=== PATIENT | male | born 1970 ===

== ENCOUNTER 2021-08-15 00:32 | Inpatient (IN) ==
[2021-08-15 00:56] LABS: Basophils % 0.3 % (0.0-0.8); Eosinophils # 0.1 10*3/uL (0.0-0.87); Eosinophils % 0.9 % (0.00-10.9); Hematocrit 35.5 VOL% (42.0-52.0); Hemoglobin 11.9 GM/DL (14.0-18.0); Immature Granulocytes % 0.2 %; Immature Granulocytes Absolute 0.01 #; Lymphocytes # 2.9 10*3/uL (1.4-4.0); Lymphocytes % 49.6 % (21.2-54.2); Mean Corpuscular HGB Conc 33.5 GM/DL (32-36); Mean Corpuscular Volume 88.1 FL (87-102); Mean Platelet Volume 10.1 FL (9.6-12.0); Platelet Count 245 T/CUMM (130-400); Red Blood Count 4.03 MC/CUMM (3.8-5.5); Red Cell Distribution Width 12.8 % (9.3-17.3); White Blood Count 5.8 T/CUMM (4-12)
[2021-08-15] MEDS ORDERED: cefTRIAXone 1,000 MG in SODIUM CHLORIDE 0.9% 100 ML IV STA (01:07)
[2021-08-15] MEDS ORDERED: ONDANSETRON 4 MG/2 ML VIAL IV STA (01:07)
[2021-08-15] MEDS ORDERED: methylPREDNISolone SOD SUC 125 MG/2 ML VIAL IV STA (01:07)
[2021-08-15 01:16] LABS: Albumin 3.8 G/DL (3.4-5.0); Bilirubin,Total 0.4 MG/DL (0.20-1.00); Calcium 8.7 MG/DL (8.5-10.1); Osmolality,Calculated 281.1 MOS/KG (273-304); Potassium 3.2 MMOL/L (3.5-5.1); Total Protein 7.1 G/DL (6.4-8.2)
[2021-08-15 01:27] LABS: PT Patient Result 10.7 SECS (10.5-12.0)
[2021-08-15] MEDS ORDERED: ALBUTEROL NEB SOLN 5 MG/ML 20 ML/BOTTLE CONT NEB SCH (01:30)
[2021-08-15 01:47] LABS: ABG Base Excess 3.1 MMOL/L (-2.5-2.5); ABG HCO3 27.1 MMOL/L (20-26); ABG PCO2 40.9 MM HG (35-48); ABG PH 7.436 (7.35-7.45); ABG PO2 69.6 MM HG (80-95); ABG TCO2 24.5 MMOL/L (23-27)
[2021-08-15] MEDS ORDERED: ALBUTEROL/IPRATROPIUM 3 ML NEB RESP TX STA (03:18)
[2021-08-15] MEDS ORDERED: POTASSIUM CHLORIDE 20 MEQ TABLET PO STA (03:18)
[2021-08-15] MEDS ORDERED: ONDANSETRON 4 MG/2 ML VIAL IV PRN (04:12)
[2021-08-15] MEDS ORDERED: GLUCAGON 1 MG VIAL IM PRN (04:12)
[2021-08-15] MEDS ORDERED: DEXTROSE 50% 25 GM/50 ML VIAL IV PRN (04:12)
[2021-08-15] MEDS ORDERED: guaiFENesin/DM ER 600-30 MG TABLET PO PRN (04:12)
[2021-08-15] MEDS ORDERED: hydrALAZINE 20 MG/1 ML VIAL IV PRN (04:12)
[2021-08-15] MEDS: LEVOFLOXACIN INJ 500 MG/100 ML PREMIX IV SCH (06:12)
[2021-08-15] MEDS: ALBUTEROL/IPRATROPIUM 3 ML NEB RESP TX SCH ×3 (07:00→19:08)
[2021-08-15] MEDS ORDERED: methylPREDNISolone SOD SUC 40 MG/1 ML VIAL IV SCH (09:00)
[2021-08-15] MEDS ORDERED: INFLUENZA VIRUS VACCINE 0.5 ML SYRINGE IM ONE (13:04)
[2021-08-15] MEDS: MONTELUKAST 10 MG TABLET PO SCH (14:13)
[2021-08-15] MEDS: PANTOPRAZOLE 40 MG TABLET PO SCH (14:14)
[2021-08-15] MEDS: BENZONATATE 100 MG CAPSULE PO SCH ×2 (14:14→20:25)
[2021-08-15 14:53] LABS: Barbiturates Screen,Urine Negative (Negative); Benzodiazepines Screen,Urine Negative (Negative); Cannabinoid Screen,Urine Negative (Negative); Opiate Screen,Urine Positive (Negative); Phencyclidine Screen,Urine Negative (Negative)
[2021-08-15] MEDS: methylPREDNISolone SOD SUC 125 MG/2 ML VIAL IV SCH (16:55)
[2021-08-15] MEDS: ACETAMINOPHEN 325 MG TABLET PO PRN (20:25)
[2021-08-16] MEDS: methylPREDNISolone SOD SUC 125 MG/2 ML VIAL IV SCH ×3 (00:51→17:26)
[2021-08-16] MEDS: ALBUTEROL/IPRATROPIUM 3 ML NEB RESP TX SCH ×4 (01:06→19:35)
[2021-08-16 06:06] LABS: Basophils % 0.1 % (0.0-0.8); Hematocrit 38.1 VOL% (42.0-52.0); Hemoglobin 12.4 GM/DL (14.0-18.0); Immature Granulocytes % 0.5 %; Immature Granulocytes Absolute 0.05 #; Lymphocytes # 0.9 10*3/uL (1.4-4.0); Lymphocytes % 8.5 % (21.2-54.2); Mean Corpuscular HGB Conc 32.5 GM/DL (32-36); Mean Corpuscular Volume 89.9 FL (87-102); Mean Platelet Volume 10.4 FL (9.6-12.0); Neutrophils % 87.9 % (38.7-73.9); Platelet Count 247 T/CUMM (130-400); Red Blood Count 4.24 MC/CUMM (3.8-5.5); Red Cell Distribution Width 13.3 % (9.3-17.3); White Blood Count 10.4 T/CUMM (4-12)
[2021-08-16] MEDS: LEVOFLOXACIN INJ 500 MG/100 ML PREMIX IV SCH (06:14)
[2021-08-16 06:17] LABS: PT Patient Result 10.7 SECS (10.5-12.0); Partial Thromboplastin Time 25.9 SECS (23.8-32.1)
[2021-08-16 06:25] LABS: Calcium 9.6 MG/DL (8.5-10.1); Osmolality,Calculated 281.5 MOS/KG (273-304); Potassium 3.7 MMOL/L (3.5-5.1)
[2021-08-16] MEDS ORDERED: MIDAZOLAM 2 MG/2 ML VIAL ONE (07:22)
[2021-08-16] MEDS ORDERED: flumazeniL 0.5 MG/5 ML VIAL IV ONE (07:23)
[2021-08-16] MEDS ORDERED: MEPERIDINE 50 MG/1 ML VIAL IM ONE (07:30)
[2021-08-16] MEDS ORDERED: BENZONATATE 100 MG CAPSULE PO ONE (07:30)
[2021-08-16] MEDS ORDERED: diphenhydrAMINE 50 MG/1 ML VIAL IM ONE (07:30)
[2021-08-16] MEDS ORDERED: LIDOCAINE 2% VISCOUS 100 ML BOTTLE SWISH/SPIT ONE (08:00)
[2021-08-16] MEDS ORDERED: LIDOCAINE 2% 20 ML VIAL RESP TX ONE (08:00)
[2021-08-16] MEDS ORDERED: LIDOCAINE 1% 20 ML VIAL MISC INJ ONE (08:00)
[2021-08-16] MEDS ORDERED: MIDAZOLAM 2 MG/2 ML VIAL IV ONE (09:01)
[2021-08-16] MEDS: MONTELUKAST 10 MG TABLET PO SCH (11:02)
[2021-08-16] MEDS: PANTOPRAZOLE 40 MG TABLET PO SCH (11:02)
[2021-08-16] MEDS: BENZONATATE 100 MG CAPSULE PO SCH ×3 (11:11→21:48)
[2021-08-17] MEDS: ALBUTEROL/IPRATROPIUM 3 ML NEB RESP TX SCH ×3 (00:35→14:59)
[2021-08-17] MEDS: methylPREDNISolone SOD SUC 125 MG/2 ML VIAL IV SCH ×3 (01:46→16:04)
[2021-08-17 06:09] LABS: Basophils % 0.1 % (0.0-0.8); Hematocrit 36.9 VOL% (42.0-52.0); Hemoglobin 11.9 GM/DL (14.0-18.0); Immature Granulocytes % 0.4 %; Immature Granulocytes Absolute 0.05 #; Lymphocytes # 0.7 10*3/uL (1.4-4.0); Lymphocytes % 6.5 % (21.2-54.2); Mean Corpuscular HGB Conc 32.2 GM/DL (32-36); Mean Corpuscular Volume 90.7 FL (87-102); Mean Platelet Volume 10.7 FL (9.6-12.0); Platelet Count 215 T/CUMM (130-400); Red Blood Count 4.07 MC/CUMM (3.8-5.5); Red Cell Distribution Width 13.4 % (9.3-17.3); White Blood Count 11.1 T/CUMM (4-12)
[2021-08-17 06:44] LABS: Calcium 9.3 MG/DL (8.5-10.1); Osmolality,Calculated 279.8 MOS/KG (273-304)
[2021-08-17] MEDS: PANTOPRAZOLE 40 MG TABLET PO SCH (09:41)
[2021-08-17] MEDS: MONTELUKAST 10 MG TABLET PO SCH (09:42)
[2021-08-17] MEDS: BENZONATATE 100 MG CAPSULE PO SCH ×3 (09:42→22:24)
[2021-08-17] MEDS: LEVOFLOXACIN INJ 500 MG/100 ML PREMIX IV SCH (10:51)
[2021-08-17] MEDS: DILTIAZEM 30 MG TABLET PO SCH ×2 (16:03→22:23)
[2021-08-18] MEDS: ALBUTEROL/IPRATROPIUM 3 ML NEB RESP TX SCH ×4 (00:40→22:35)
[2021-08-18] MEDS: ACETYLCYSTEINE 20% 800 MG/4 ML VIAL RESP TX SCH ×4 (00:40→22:53)
[2021-08-18] MEDS: methylPREDNISolone SOD SUC 125 MG/2 ML VIAL IV SCH ×3 (03:19→16:26)
[2021-08-18 06:40] LABS: Basophils % 0.2 % (0.0-0.8); Hematocrit 36.1 VOL% (42.0-52.0); Immature Granulocytes % 0.6 %; Immature Granulocytes Absolute 0.07 #; Lymphocytes # 0.9 10*3/uL (1.4-4.0); Lymphocytes % 7.9 % (21.2-54.2); Mean Corpuscular HGB Conc 33.2 GM/DL (32-36); Mean Corpuscular Volume 90.7 FL (87-102); Mean Platelet Volume 10.9 FL (9.6-12.0); Monocytes % 4.5 % (1.7-12.7); Neutrophils % 86.8 % (38.7-73.9); Platelet Count 211 T/CUMM (130-400); Red Blood Count 3.98 MC/CUMM (3.8-5.5); Red Cell Distribution Width 13.3 % (9.3-17.3); White Blood Count 11.2 T/CUMM (4-12)
[2021-08-18 06:55] LABS: Calcium 8.8 MG/DL (8.5-10.1); Osmolality,Calculated 280.4 MOS/KG (273-304); Potassium 3.8 MMOL/L (3.5-5.1)
[2021-08-18] MEDS: LEVOFLOXACIN INJ 500 MG/100 ML PREMIX IV SCH (09:12)
[2021-08-18] MEDS: BENZONATATE 100 MG CAPSULE PO SCH ×3 (09:12→22:00)
[2021-08-18] MEDS: MONTELUKAST 10 MG TABLET PO SCH (09:12)
[2021-08-18] MEDS: PANTOPRAZOLE 40 MG TABLET PO SCH (09:12)
[2021-08-18] MEDS: DILTIAZEM 30 MG TABLET PO SCH ×3 (09:12→22:00)
[2021-08-18] MEDS: NYSTATIN 500,000 UNIT/5 ML UDCUP SWISH/SWAL SCH ×2 (16:27→21:59)
[2021-08-19] MEDS: methylPREDNISolone SOD SUC 125 MG/2 ML VIAL IV SCH (05:58)
[2021-08-19] MEDS ORDERED: methylPREDNISolone SOD SUC 125 MG/2 ML VIAL IV SCH ×2 (06:00→14:00)
[2021-08-19 06:01] LABS: Basophils % 0.1 % (0.0-0.8); Hematocrit 38.6 VOL% (42.0-52.0); Hemoglobin 12.5 GM/DL (14.0-18.0); Immature Granulocytes % 1.1 %; Immature Granulocytes Absolute 0.12 #; Lymphocytes # 1.3 10*3/uL (1.4-4.0); Lymphocytes % 11.6 % (21.2-54.2); Mean Corpuscular HGB Conc 32.4 GM/DL (32-36); Monocytes % 6.2 % (1.7-12.7); Platelet Count 217 T/CUMM (130-400); Red Blood Count 4.24 MC/CUMM (3.8-5.5); Red Cell Distribution Width 13.2 % (9.3-17.3)
[2021-08-19 06:26] LABS: Calcium 8.9 MG/DL (8.5-10.1); Osmolality,Calculated 283.4 MOS/KG (273-304); Potassium 3.8 MMOL/L (3.5-5.1)
[2021-08-19] MEDS: ALBUTEROL/IPRATROPIUM 3 ML NEB RESP TX SCH (07:30)
[2021-08-19 08:06] LABS: M. Tuberculosis PCR Result Negative (Negative)
[2021-08-19] MEDS: PANTOPRAZOLE 40 MG TABLET PO SCH (08:42)
[2021-08-19] MEDS: LEVOFLOXACIN INJ 500 MG/100 ML PREMIX IV SCH (08:42)
[2021-08-19] MEDS: BENZONATATE 100 MG CAPSULE PO SCH ×2 (08:42→15:27)
[2021-08-19] MEDS: DILTIAZEM 30 MG TABLET PO SCH ×2 (08:43→15:27)
[2021-08-19] MEDS: NYSTATIN 500,000 UNIT/5 ML UDCUP SWISH/SWAL SCH ×2 (08:43→15:28)
[2021-08-19] MEDS: MONTELUKAST 10 MG TABLET PO SCH (08:43)
[2021-08-19] MEDS: ACETAMINOPHEN 325 MG TABLET PO PRN (08:46)
[2021-08-19] MEDS: ACETYLCYSTEINE 20% 800 MG/4 ML VIAL RESP TX SCH (10:05)
[2021-08-19 11:29] LABS: Bilirubin,Urine Negative (Negative); Blood, Urine Negative (Negative); Glucose,Urine (UA) Negative (Negative); Ketones,Urine Negative (Negative); Nitrite,Urine Negative (Negative); Protein,Urine Negative; RBC,Urine <1 /HPF (0-4); Urine Appearance CLEAR (Clear); Urine Color Yellow (Yellow); Urine Specific Gravity 1.016 (1.001-1.035); Urine Urobilinogen < 2.0 EU/DL (0.2-1.0)
[2021-08-19 11:45] VITALS: BP 179/91
[2021-08-19] MEDS ORDERED: TAMSULOSIN 0.4 MG CAPSULE PO ONE (16:23)
== END 2021-08-19 16:57 | disposition home or self-care (01) | DRG 191 ==
LOC: N.ED 00:32 → SUATTDRO 04:12 → N.EDINP 04:12 → N.5E 12:52
PROVIDERS: ADMIT Internal Medicine; ATTEND Internal Medicine

== ENCOUNTER 2021-12-18 22:06 | Inpatient (IN) ==
[2021-12-18] MEDS ORDERED: ACETAMINOPHEN 500 MG TABLET PO STA (22:29)
[2021-12-18] MEDS ORDERED: methylPREDNISolone SOD SUC 125 MG/2 ML VIAL IV STA (22:36)
[2021-12-18] MEDS ORDERED: SODIUM CHLORIDE 0.9% 1,000 ML IV STA (22:37)
[2021-12-18] MEDS ORDERED: hydrALAZINE 20 MG/1 ML VIAL IV STA (22:48)
[2021-12-18 22:58] LABS: Basophils % 0.6 % (0.0-0.8); Eosinophils # 0.1 10*3/uL (0.0-0.87); Eosinophils % 2.6 % (0.00-10.9); Hematocrit 36.1 VOL% (42.0-52.0); Hemoglobin 11.7 GM/DL (14.0-18.0); Immature Granulocytes % 0.3 %; Immature Granulocytes Absolute 0.01 #; Lymphocytes % 30.4 % (21.2-54.2); Mean Corpuscular HGB Conc 32.4 GM/DL (32-36); Mean Corpuscular Volume 89.4 FL (87-102); Mean Platelet Volume 11.1 FL (9.6-12.0); Monocytes % 12.3 % (1.7-12.7); Neutrophils % 53.8 % (38.7-73.9); Platelet Count 159 T/CUMM (130-400); Red Blood Count 4.04 MC/CUMM (3.8-5.5); Red Cell Distribution Width 13.7 % (9.3-17.3); White Blood Count 3.4 T/CUMM (4-12)
[2021-12-18] MEDS: ALBUTEROL/IPRATROPIUM 3 ML NEB RESP TX STA ×2 (23:00→23:30)
[2021-12-18 23:21] LABS: Alanine Aminotransferase 30 U/L (16-61); Albumin 3.8 G/DL (3.4-5.0); Alkaline Phosphatase 107 U/L (45-117); Aspartate Amino Transferase 27 U/L (0-37); Bilirubin,Total < 0.39 MG/DL (0.20-1.00); Blood Urea Nitrogen 13 MG/DL (7-18); Calcium 8.3 MG/DL (8.5-10.1); Carbon Dioxide 25 MMOL/L (21-32); Estimated Glom Filtration Rate 94 ML/MIN; Glucose 90 MG/DL (74-106); Osmolality,Calculated 276.5 MOS/KG (273-304); Potassium 3.6 MMOL/L (3.5-5.1); Sodium 139 MMOL/L (136-145); Total Protein 7.2 G/DL (6.4-8.2)
[2021-12-18] MEDS ORDERED: ALBUTEROL/IPRATROPIUM 3 ML NEB RESP TX STA (23:29)
[2021-12-19] MEDS ORDERED: ACETAMINOPHEN 325 MG TABLET PO PRN (00:33)
[2021-12-19] MEDS ORDERED: DEXTROSE 10% 250 ML BAG IV PRN (00:34)
[2021-12-19] MEDS ORDERED: GLUCAGON 1 MG VIAL IM PRN (00:34)
[2021-12-19] MEDS: MONTELUKAST 10 MG TABLET PO SCH ×2 (01:09→20:39)
[2021-12-19] MEDS: TAMSULOSIN 0.4 MG CAPSULE PO SCH ×2 (01:09→20:39)
[2021-12-19] MEDS: AZITHROMYCIN INJ 500 MG in SODIUM CHLORIDE 0.9% 250 ML IV SCH (01:09)
[2021-12-19] MEDS ORDERED: LORazepam 2 MG/1 ML VIAL ONE (01:12)
[2021-12-19] MEDS: ALBUTEROL/IPRATROPIUM 3 ML NEB RESP TX SCH ×4 (01:30→19:42)
[2021-12-19 02:02] LABS: INR 0.9; PT Patient Result 10.3 SECS (10.5-12.0); Partial Thromboplastin Time 29.1 SECS (23.8-32.1)
[2021-12-19 02:14] LABS: Hematocrit 35.5 VOL% (42.0-52.0); Hemoglobin 11.8 GM/DL (14.0-18.0)
[2021-12-19] MEDS: FLUTICASONE/SALMETEROL 500-50 DISKUS 14 DOSE INH SCH ×3 (02:32→20:39)
[2021-12-19 02:35] LABS: Calcium 8.6 MG/DL (8.5-10.1); Osmolality,Calculated 277.5 MOS/KG (273-304); Potassium 3.6 MMOL/L (3.5-5.1)
[2021-12-19] MEDS: methylPREDNISolone SOD SUC 125 MG/2 ML VIAL IV SCH ×3 (05:11→17:22)
[2021-12-19] MEDS ORDERED: LORazepam 2 MG/1 ML VIAL IV ONE (06:20)
[2021-12-19] MEDS ORDERED: ENOXAPARIN 40 MG/0.4 ML SYRINGE SUBCUT SCH (09:00)
[2021-12-19] MEDS: lisinopriL 20 MG TABLET PO SCH (09:32)
[2021-12-19] MEDS: amLODIPine 10 MG TABLET PO SCH (09:32)
[2021-12-19] MEDS: PANTOPRAZOLE 40 MG TABLET PO SCH (09:32)
[2021-12-19] MEDS: INSULIN LISPRO 100 UNIT/ML SUBCUT SCH ×4 (09:42→20:39)
[2021-12-19 15:52] LABS: Barbiturates Screen,Urine Negative (Negative); Benzodiazepines Screen,Urine Negative (Negative); Cannabinoid Screen,Urine Negative (Negative); Opiate Screen,Urine Negative (Negative); Phencyclidine Screen,Urine Negative (Negative)
[2021-12-19] MEDS: hydrALAZINE 20 MG/1 ML VIAL IV PRN (17:22)
[2021-12-19] MEDS ORDERED: traZODone 50 MG TABLET PO ONE (22:54)
[2021-12-20] MEDS: AZITHROMYCIN INJ 500 MG in SODIUM CHLORIDE 0.9% 250 ML IV SCH (00:08)
[2021-12-20] MEDS: methylPREDNISolone SOD SUC 125 MG/2 ML VIAL IV SCH ×3 (00:08→12:02)
[2021-12-20] MEDS: ALBUTEROL/IPRATROPIUM 3 ML NEB RESP TX SCH ×4 (00:10→19:11)
[2021-12-20] MEDS: PANTOPRAZOLE 40 MG TABLET PO SCH (08:57)
[2021-12-20] MEDS: lisinopriL 20 MG TABLET PO SCH (08:57)
[2021-12-20] MEDS: amLODIPine 10 MG TABLET PO SCH (08:57)
[2021-12-20] MEDS: FLUTICASONE/SALMETEROL 500-50 DISKUS 14 DOSE INH SCH ×2 (08:58→21:51)
[2021-12-20] MEDS: INSULIN LISPRO 100 UNIT/ML SUBCUT SCH ×4 (08:58→21:51)
[2021-12-20] MEDS ORDERED: MORPHINE 2 MG/1 ML SYRINGE IV PRN (10:32)
[2021-12-20] MEDS: cefTRIAXone 1,000 MG in SODIUM CHLORIDE 0.9% 100 ML IV SCH (16:50)
[2021-12-20] MEDS: TAMSULOSIN 0.4 MG CAPSULE PO SCH (21:51)
[2021-12-20] MEDS: MONTELUKAST 10 MG TABLET PO SCH (21:52)
[2021-12-21] MEDS: methylPREDNISolone SOD SUC 40 MG/1 ML VIAL IV SCH ×2 (00:28→11:56)
[2021-12-21] MEDS: AZITHROMYCIN INJ 500 MG in SODIUM CHLORIDE 0.9% 250 ML IV SCH (00:28)
[2021-12-21] MEDS: ALBUTEROL/IPRATROPIUM 3 ML NEB RESP TX SCH ×4 (00:35→19:50)
[2021-12-21 04:39] LABS: Basophils % 0.1 % (0.0-0.8); Hematocrit 31.9 VOL% (42.0-52.0); Hemoglobin 10.5 GM/DL (14.0-18.0); Immature Granulocytes % 0.4 %; Immature Granulocytes Absolute 0.04 #; Lymphocytes # 0.7 10*3/uL (1.4-4.0); Mean Corpuscular HGB Conc 32.9 GM/DL (32-36); Mean Corpuscular Volume 88.9 FL (87-102); Mean Platelet Volume 10.5 FL (9.6-12.0); Monocytes % 6.3 % (1.7-12.7); Neutrophils % 85.2 % (38.7-73.9); Platelet Count 169 T/CUMM (130-400); Red Blood Count 3.59 MC/CUMM (3.8-5.5); Red Cell Distribution Width 14.2 % (9.3-17.3); White Blood Count 9.2 T/CUMM (4-12)
[2021-12-21 05:01] LABS: Calcium 7.3 MG/DL (8.5-10.1); Osmolality,Calculated 283.4 MOS/KG (273-304); Potassium 4.1 MMOL/L (3.5-5.1)
[2021-12-21 05:05] LABS: Hypochromia 1+; Lymphocytes 7 % (20-55); Microcytosis 1+; Ovalocytes Few; Platelet Estimate Adequate; Segmented Neutrophils 88 % (50-85); Total Cells Counted 100
[2021-12-21] MEDS: amLODIPine 10 MG TABLET PO SCH (09:16)
[2021-12-21] MEDS: PANTOPRAZOLE 40 MG TABLET PO SCH (09:16)
[2021-12-21] MEDS: INSULIN LISPRO 100 UNIT/ML SUBCUT SCH ×4 (09:17→22:56)
[2021-12-21] MEDS: FLUTICASONE/SALMETEROL 500-50 DISKUS 14 DOSE INH SCH ×2 (09:17→22:55)
[2021-12-21] MEDS: cefTRIAXone 1,000 MG in SODIUM CHLORIDE 0.9% 100 ML IV SCH (16:52)
[2021-12-21] MEDS: TAMSULOSIN 0.4 MG CAPSULE PO SCH (22:55)
[2021-12-21] MEDS: MONTELUKAST 10 MG TABLET PO SCH (22:55)
[2021-12-22] MEDS: methylPREDNISolone SOD SUC 40 MG/1 ML VIAL IV SCH ×2 (00:50→12:36)
[2021-12-22] MEDS: AZITHROMYCIN INJ 500 MG in SODIUM CHLORIDE 0.9% 250 ML IV SCH (02:11)
[2021-12-22 04:54] LABS: Basophils % 0.1 % (0.0-0.8); Hematocrit 32.3 VOL% (42.0-52.0); Hemoglobin 10.6 GM/DL (14.0-18.0); Immature Granulocytes Absolute 0.07 #; Lymphocytes # 1.2 10*3/uL (1.4-4.0); Lymphocytes % 17.7 % (21.2-54.2); Mean Corpuscular HGB Conc 32.8 GM/DL (32-36); Mean Corpuscular Volume 90.2 FL (87-102); Mean Platelet Volume 11.1 FL (9.6-12.0); Monocytes % 10.5 % (1.7-12.7); Neutrophils % 70.7 % (38.7-73.9); Platelet Count 179 T/CUMM (130-400); Red Blood Count 3.58 MC/CUMM (3.8-5.5); Red Cell Distribution Width 14.1 % (9.3-17.3); White Blood Count 6.8 T/CUMM (4-12)
[2021-12-22 05:18] LABS: Calcium 8.3 MG/DL (8.5-10.1); Osmolality,Calculated 284.3 MOS/KG (273-304); Potassium 3.1 MMOL/L (3.5-5.1)
[2021-12-22] MEDS: ALBUTEROL/IPRATROPIUM 3 ML NEB RESP TX SCH ×3 (07:42→14:00)
[2021-12-22] MEDS: INSULIN LISPRO 100 UNIT/ML SUBCUT SCH ×4 (08:48→20:29)
[2021-12-22] MEDS ORDERED: INFLUENZA VIRUS VACCINE 0.5 ML SYRINGE IM ONE (09:00)
[2021-12-22] MEDS: PANTOPRAZOLE 40 MG TABLET PO SCH (09:04)
[2021-12-22] MEDS: amLODIPine 10 MG TABLET PO SCH (09:05)
[2021-12-22] MEDS: FLUTICASONE/SALMETEROL 500-50 DISKUS 14 DOSE INH SCH ×2 (09:06→20:23)
[2021-12-22] MEDS ORDERED: POTASSIUM CHLORIDE 20 MEQ TABLET PO ONE (10:06)
[2021-12-22] MEDS: cefTRIAXone 1,000 MG in SODIUM CHLORIDE 0.9% 100 ML IV SCH (16:19)
[2021-12-22] MEDS: MONTELUKAST 10 MG TABLET PO SCH (20:22)
[2021-12-22] MEDS: TAMSULOSIN 0.4 MG CAPSULE PO SCH (20:22)
[2021-12-22] MEDS: QUEtiapine 100 MG TABLET PO SCH (20:22)
[2021-12-22] MEDS: OXCARBAZEPINE 150 MG PO SCH (20:24)
[2021-12-22] MEDS ORDERED: METOPROLOL TARTRATE 50 MG TABLET PO SCH (21:00)
[2021-12-23] MEDS: methylPREDNISolone SOD SUC 40 MG/1 ML VIAL IV SCH ×3 (00:10→23:24)
[2021-12-23] MEDS: AZITHROMYCIN INJ 500 MG in SODIUM CHLORIDE 0.9% 250 ML IV SCH (00:10)
[2021-12-23] MEDS: ALBUTEROL/IPRATROPIUM 3 ML NEB RESP TX SCH ×5 (01:00→19:15)
[2021-12-23 05:26] LABS: Basophils % 0.5 % (0.0-0.8); Hematocrit 33.6 VOL% (42.0-52.0); Hemoglobin 11.2 GM/DL (14.0-18.0); Immature Granulocytes % 2.7 %; Immature Granulocytes Absolute 0.16 #; Lymphocytes % 16.8 % (21.2-54.2); Mean Corpuscular HGB Conc 33.3 GM/DL (32-36); Mean Corpuscular Volume 88.7 FL (87-102); Monocytes % 7.3 % (1.7-12.7); Neutrophils % 72.7 % (38.7-73.9); Platelet Count 192 T/CUMM (130-400); Red Blood Count 3.79 MC/CUMM (3.8-5.5); Red Cell Distribution Width 13.8 % (9.3-17.3)
[2021-12-23 05:59] LABS: Band Neutrophils 1 % (0-10); Hypochromia 1+; Lymphocytes 12 % (20-55); Promyelocytes 2 %; Segmented Neutrophils 79 % (50-85); Total Cells Counted 100
[2021-12-23 06:00] LABS: Microcytosis 1+; Ovalocytes Few; Tear Drop Cells Slight
[2021-12-23 06:01] LABS: Platelet Estimate Adequate
[2021-12-23] MEDS ORDERED: LOSARTAN 25 MG TABLET PO SCH (09:00)
[2021-12-23] MEDS ORDERED: MONTELUKAST 10 MG TABLET PO SCH (09:00)
[2021-12-23] MEDS: PANTOPRAZOLE 40 MG TABLET PO SCH (09:12)
[2021-12-23] MEDS: INSULIN LISPRO 100 UNIT/ML SUBCUT SCH ×4 (09:13→20:58)
[2021-12-23] MEDS: amLODIPine 10 MG TABLET PO SCH (09:13)
[2021-12-23] MEDS: FLUoxetine 20 MG CAPSULE PO SCH (09:13)
[2021-12-23] MEDS: FLUTICASONE/SALMETEROL 500-50 DISKUS 14 DOSE INH SCH ×2 (09:15→20:57)
[2021-12-23] MEDS: OXCARBAZEPINE 150 MG PO SCH ×2 (09:22→20:59)
[2021-12-23 11:08] LABS: Calcium 8.2 MG/DL (8.5-10.1); Osmolality,Calculated 281.3 MOS/KG (273-304); Potassium 3.4 MMOL/L (3.5-5.1)
[2021-12-23] MEDS: hydrALAZINE 20 MG/1 ML VIAL IV PRN ×2 (12:18→21:22)
[2021-12-23] MEDS: cefTRIAXone 1,000 MG in SODIUM CHLORIDE 0.9% 100 ML IV SCH (17:38)
[2021-12-23] MEDS: MONTELUKAST 10 MG TABLET PO SCH (20:57)
[2021-12-23] MEDS: TAMSULOSIN 0.4 MG CAPSULE PO SCH (20:57)
[2021-12-23] MEDS: QUEtiapine 100 MG TABLET PO SCH (20:58)
[2021-12-24] MEDS: ALBUTEROL/IPRATROPIUM 3 ML NEB RESP TX SCH ×2 (01:05→07:05)
[2021-12-24 09:07] LABS: Calcium 8.7 MG/DL (8.5-10.1); Osmolality,Calculated 277.8 MOS/KG (273-304); Potassium 3.5 MMOL/L (3.5-5.1)
[2021-12-24] MEDS: hydroCHLOROthiazide 12.5 MG CAPSULE PO SCH (09:14)
[2021-12-24] MEDS: amLODIPine 10 MG TABLET PO SCH (09:14)
[2021-12-24] MEDS: FLUoxetine 20 MG CAPSULE PO SCH (09:14)
[2021-12-24] MEDS: PANTOPRAZOLE 40 MG TABLET PO SCH (09:14)
[2021-12-24] MEDS: FLUTICASONE/SALMETEROL 500-50 DISKUS 14 DOSE INH SCH ×2 (09:15→21:07)
[2021-12-24] MEDS: INSULIN LISPRO 100 UNIT/ML SUBCUT SCH ×4 (09:17→21:09)
[2021-12-24] MEDS: OXCARBAZEPINE 150 MG PO SCH ×2 (09:19→21:18)
[2021-12-24] MEDS: MONTELUKAST 10 MG TABLET PO SCH ×2 (10:08→21:08)
[2021-12-24] MEDS: IPRATROPIUM 500 MCG/2.5 ML NEB RESP TX SCH ×2 (12:03→19:42)
[2021-12-24] MEDS: methylPREDNISolone SOD SUC 40 MG/1 ML VIAL IV SCH (12:09)
[2021-12-24] MEDS: hydrALAZINE 25 MG TABLET PO SCH ×2 (16:31→21:08)
[2021-12-24] MEDS: cefTRIAXone 1,000 MG in SODIUM CHLORIDE 0.9% 100 ML IV SCH (16:31)
[2021-12-24] MEDS: TAMSULOSIN 0.4 MG CAPSULE PO SCH (21:08)
[2021-12-24] MEDS: QUEtiapine 100 MG TABLET PO SCH (21:08)
[2021-12-25] MEDS: methylPREDNISolone SOD SUC 40 MG/1 ML VIAL IV SCH ×3 (00:34→23:56)
[2021-12-25] MEDS: hydrALAZINE 20 MG/1 ML VIAL IV PRN (00:46)
[2021-12-25] MEDS: IPRATROPIUM 500 MCG/2.5 ML NEB RESP TX SCH ×4 (01:10→19:50)
[2021-12-25 04:55] LABS: Basophils % 0.2 % (0.0-0.8); Hematocrit 35.4 VOL% (42.0-52.0); Hemoglobin 11.8 GM/DL (14.0-18.0); Immature Granulocytes % 3.3 %; Immature Granulocytes Absolute 0.28 #; Lymphocytes % 11.8 % (21.2-54.2); Mean Corpuscular HGB Conc 33.3 GM/DL (32-36); Mean Corpuscular Volume 87.4 FL (87-102); Mean Platelet Volume 10.5 FL (9.6-12.0); Monocytes % 6.9 % (1.7-12.7); Neutrophils % 77.8 % (38.7-73.9); Platelet Count 231 T/CUMM (130-400); Red Blood Count 4.05 MC/CUMM (3.8-5.5); Red Cell Distribution Width 13.9 % (9.3-17.3); White Blood Count 8.6 T/CUMM (4-12)
[2021-12-25 05:13] LABS: Calcium 8.5 MG/DL (8.5-10.1); Potassium 3.6 MMOL/L (3.5-5.1)
[2021-12-25 05:21] LABS: Hypochromia 1+; Lymphocytes 13 % (20-55); Metamyelocytes 1 %; Microcytosis 1+; Promyelocytes 1 %; Segmented Neutrophils 74 % (50-85); Total Cells Counted 100
[2021-12-25 05:22] LABS: Ovalocytes Few; Platelet Estimate Normal
[2021-12-25] MEDS: hydrALAZINE 25 MG TABLET PO SCH ×3 (09:30→22:28)
[2021-12-25] MEDS: INSULIN LISPRO 100 UNIT/ML SUBCUT SCH ×4 (09:30→22:25)
[2021-12-25] MEDS: FLUTICASONE/SALMETEROL 500-50 DISKUS 14 DOSE INH SCH ×2 (09:30→22:26)
[2021-12-25] MEDS: amLODIPine 10 MG TABLET PO SCH (09:31)
[2021-12-25] MEDS: hydroCHLOROthiazide 12.5 MG CAPSULE PO SCH (09:31)
[2021-12-25] MEDS: FLUoxetine 20 MG CAPSULE PO SCH (09:32)
[2021-12-25] MEDS: PANTOPRAZOLE 40 MG TABLET PO SCH (09:32)
[2021-12-25] MEDS: OXCARBAZEPINE 150 MG PO SCH ×2 (09:33→22:23)
[2021-12-25] MEDS: MONTELUKAST 10 MG TABLET PO SCH ×2 (09:34→22:27)
[2021-12-25] MEDS: cefTRIAXone 1,000 MG in SODIUM CHLORIDE 0.9% 100 ML IV SCH (16:30)
[2021-12-25] MEDS: QUEtiapine 100 MG TABLET PO SCH (22:27)
[2021-12-25] MEDS: TAMSULOSIN 0.4 MG CAPSULE PO SCH (22:28)
[2021-12-26] MEDS: IPRATROPIUM 500 MCG/2.5 ML NEB RESP TX SCH ×4 (00:55→19:34)
[2021-12-26] MEDS: FLUoxetine 20 MG CAPSULE PO SCH (10:20)
[2021-12-26] MEDS: hydrALAZINE 25 MG TABLET PO SCH (10:20)
[2021-12-26] MEDS: FLUTICASONE/SALMETEROL 500-50 DISKUS 14 DOSE INH SCH ×2 (10:20→21:37)
[2021-12-26] MEDS: MONTELUKAST 10 MG TABLET PO SCH ×2 (10:21→21:38)
[2021-12-26] MEDS: amLODIPine 10 MG TABLET PO SCH (10:21)
[2021-12-26] MEDS: hydroCHLOROthiazide 12.5 MG CAPSULE PO SCH (10:21)
[2021-12-26] MEDS: PANTOPRAZOLE 40 MG TABLET PO SCH (10:21)
[2021-12-26] MEDS: INSULIN LISPRO 100 UNIT/ML SUBCUT SCH ×4 (10:22→21:37)
[2021-12-26] MEDS: OXCARBAZEPINE 150 MG PO SCH ×2 (10:22→21:38)
[2021-12-26] MEDS: methylPREDNISolone SOD SUC 40 MG/1 ML VIAL IV SCH ×2 (14:21→21:38)
[2021-12-26] MEDS: cefTRIAXone 1,000 MG in SODIUM CHLORIDE 0.9% 100 ML IV SCH (15:49)
[2021-12-26] MEDS: TAMSULOSIN 0.4 MG CAPSULE PO SCH (21:37)
[2021-12-26] MEDS: QUEtiapine 100 MG TABLET PO SCH (21:38)
[2021-12-27] MEDS: IPRATROPIUM 500 MCG/2.5 ML NEB RESP TX SCH ×4 (00:12→20:02)
[2021-12-27 05:40] LABS: Basophils % 0.1 % (0.0-0.8); Eosinophils % 0.1 % (0.00-10.9); Hematocrit 36.1 VOL% (42.0-52.0); Immature Granulocytes % 3.7 %; Immature Granulocytes Absolute 0.25 #; Mean Corpuscular HGB Conc 33.2 GM/DL (32-36); Mean Corpuscular Volume 87.8 FL (87-102); Mean Platelet Volume 10.3 FL (9.6-12.0); Monocytes % 7.6 % (1.7-12.7); Neutrophils % 73.5 % (38.7-73.9); Platelet Count 224 T/CUMM (130-400); Red Blood Count 4.11 MC/CUMM (3.8-5.5); Red Cell Distribution Width 13.8 % (9.3-17.3); White Blood Count 6.7 T/CUMM (4-12)
[2021-12-27 05:52] LABS: PT Patient Result 10.8 SECS (10.5-12.0); Partial Thromboplastin Time 24.8 SECS (23.8-32.1)
[2021-12-27 06:03] LABS: Potassium 4.2 MMOL/L (3.5-5.1)
[2021-12-27] MEDS ORDERED: BENZONATATE 100 MG CAPSULE PO ONE (08:00)
[2021-12-27] MEDS ORDERED: MEPERIDINE 50 MG/1 ML VIAL IM ONE (08:00)
[2021-12-27] MEDS ORDERED: diphenhydrAMINE 50 MG/1 ML VIAL IM ONE (08:00)
[2021-12-27] MEDS: INSULIN LISPRO 100 UNIT/ML SUBCUT SCH ×4 (08:26→20:58)
[2021-12-27] MEDS ORDERED: LIDOCAINE 1% 20 ML VIAL MISC INJ ONE (08:30)
[2021-12-27] MEDS ORDERED: LIDOCAINE 2% 20 ML VIAL RESP TX ONE (08:30)
[2021-12-27] MEDS ORDERED: LIDOCAINE 2% VISCOUS 100 ML BOTTLE SWISH/SPIT ONE (08:30)
[2021-12-27] MEDS ORDERED: MIDAZOLAM 2 MG/2 ML VIAL ONE (08:45)
[2021-12-27] MEDS ORDERED: IPRATROPIUM 500 MCG/2.5 ML NEB RESP TX ONE (09:30)
[2021-12-27] MEDS: OXCARBAZEPINE 150 MG PO SCH ×2 (09:41→20:59)
[2021-12-27] MEDS: MONTELUKAST 10 MG TABLET PO SCH ×2 (09:41→20:57)
[2021-12-27] MEDS: FLUoxetine 20 MG CAPSULE PO SCH (09:41)
[2021-12-27] MEDS: PANTOPRAZOLE 40 MG TABLET PO SCH (09:41)
[2021-12-27] MEDS: FLUTICASONE/SALMETEROL 500-50 DISKUS 14 DOSE INH SCH ×2 (09:42→20:57)
[2021-12-27] MEDS: amLODIPine 10 MG TABLET PO SCH ×2 (09:42→12:44)
[2021-12-27] MEDS: hydroCHLOROthiazide 12.5 MG CAPSULE PO SCH ×2 (09:42→12:44)
[2021-12-27] MEDS: methylPREDNISolone SOD SUC 40 MG/1 ML VIAL IV SCH ×2 (10:08→20:56)
[2021-12-27] MEDS: hydrALAZINE 20 MG/1 ML VIAL IV PRN (12:59)
[2021-12-27] MEDS ORDERED: ENOXAPARIN 40 MG/0.4 ML SYRINGE SUBCUT SCH (15:00)
[2021-12-27] MEDS: cefTRIAXone 1,000 MG in SODIUM CHLORIDE 0.9% 100 ML IV SCH (16:59)
[2021-12-27] MEDS: TAMSULOSIN 0.4 MG CAPSULE PO SCH (20:56)
[2021-12-27] MEDS: QUEtiapine 100 MG TABLET PO SCH (20:57)
[2021-12-28] MEDS: IPRATROPIUM 500 MCG/2.5 ML NEB RESP TX SCH ×2 (00:09→07:49)
[2021-12-28] MEDS: INSULIN LISPRO 100 UNIT/ML SUBCUT SCH (08:14)
[2021-12-28] MEDS: PANTOPRAZOLE 40 MG TABLET PO SCH (10:05)
[2021-12-28] MEDS: MONTELUKAST 10 MG TABLET PO SCH (10:05)
[2021-12-28] MEDS: FLUoxetine 20 MG CAPSULE PO SCH (10:05)
[2021-12-28] MEDS: FLUTICASONE/SALMETEROL 500-50 DISKUS 14 DOSE INH SCH (10:05)
[2021-12-28] MEDS: methylPREDNISolone SOD SUC 40 MG/1 ML VIAL IV SCH (10:06)
[2021-12-28] MEDS: hydroCHLOROthiazide 12.5 MG CAPSULE PO SCH (10:06)
[2021-12-28] MEDS: OXCARBAZEPINE 150 MG PO SCH (10:08)
[2021-12-28] MEDS: amLODIPine 10 MG TABLET PO SCH (11:26)
[2021-12-28 12:29] VITALS: BP 162/72
[2021-12-28] MEDS ORDERED: DILTIAZEM 30 MG TABLET PO SCH (15:00)
[2021-12-29 12:06] LABS: M. Tuberculosis PCR Result Negative (Negative); M. Tuberculosis PCR Source BRONCH WASH
== END 2021-12-28 12:28 | disposition home or self-care (01) | DRG 190 ==
LOC: N.ED 22:06 → N.EDINP 12-19 00:29 → SUATTDRO 12-19 00:29 → N.TELEN 12-19 03:20
PROVIDERS: ADMIT Hospitalist; ATTEND Internal Medicine